=== PATIENT | male | born 1940 | race Caucasian/White ===

== ENCOUNTER 2018-01-08 11:49 | Inpatient (IN) | payer OTHER ==
[~2018-01-08] VITALS: Ht 180.3 cm; Wt 75.8 kg
[2018-01-08] MEDS ORDERED: FUROSEMIDE 10 MG/ML 2ML VIAL ONE (12:23)
[2018-01-08] MEDS ORDERED: FUROSEMIDE 10 MG/ML 4ML VIAL ONE (12:23)
[2018-01-08 12:32] LABS: BASOPHILS % (AUTO) 0.9 % (0.0-5.0); LYMPHOCYTES % (AUTO) 12.4 % (21.0-51.0); MEAN CORPUSCULAR HEMOGLOBIN 29.4 pg (27.0-33.0); MEAN CORPUSCULAR VOLUME 86.6 fL (79-99); MONOCYTES % (AUTO) 5.7 % (3.0-13.0); PLATELET COUNT (AUTO) 269 K/uL (130-400); RED BLOOD CELL COUNT(AUTO) 4.04 MIL/uL (4.50-6.20); RED CELL DISTRIBUTION WIDTH 14.8 % (11.0-15.5); WHITE BLOOD COUNT (AUTO) 4.9 K/uL (4.8-10.8)
[2018-01-08 12:44] LABS: CREATININE 1.7 mg/dL (0.5-1.5); POTASSIUM 3.9 mmol/L (3.5-5.1)
[2018-01-08 12:49] LABS: ALBUMIN 3.3 g/dL (3.5-5.0); BILIRUBIN,TOTAL 0.6 mg/dL (0.2-1.0); TOTAL PROTEIN, SERUM 7.1 g/dL (6.0-8.3)
[2018-01-08 13:03] LABS: B-TYPE NATRIURETIC PEPTIDE 279 pg/mL (0-100)
[2018-01-08] MEDS ORDERED: IPRATROPIUM/ALBUTEROL SULFATE 3 ML SOLUTION IH ONE (14:25)
[2018-01-08] MEDS ORDERED: GUAIFENESIN-DM 200/20 MG 10 ML PO PRN (15:00)
[2018-01-08] MEDS ORDERED: MORPHINE SULFATE 2 MG/ML 1ML SYG IV PRN (15:00)
[2018-01-08] MEDS ORDERED: ONDANSETRON HCL 4 MG/2 ML VIAL IV PRN (15:00)
[2018-01-08] MEDS ORDERED: ACETAMINOPHEN 325 MG TAB PO PRN (15:00)
[2018-01-08] MEDS ORDERED: METHYLPREDNISOLONE SOD SUCC 125MG/2ML VIAL ONE (15:01)
[2018-01-08] MEDS ORDERED: LIDOCAINE HCL-MPF 1% 2ML VIAL IVP PRN ×2 (15:30)
[2018-01-08] MEDS ORDERED: POTASSIUM CHLORIDE 10% ELIXIR 20 MEQ/15 ML UDCUP PO PRN ×2 (15:30)
[2018-01-08] MEDS: FUROSEMIDE 10 MG/ML 2ML VIAL IV SCH (15:30)
[2018-01-08] MEDS ORDERED: POTASSIUM CHLORIDE 20 MEQ ERTAB PO PRN ×2 (15:30)
[2018-01-08] MEDS ORDERED: GLUCAGON 1MG KIT 1 MG ML IM PRN (15:30)
[2018-01-08] MEDS ORDERED: POTASSIUM CHLORIDE 10MEQ/100ML 100 ML IV PRN (15:30)
[2018-01-08] MEDS ORDERED: POTASSIUM CHLORIDE 20MEQ/100ML 100 ML IV PRN (15:30)
[2018-01-08] MEDS ORDERED: DEXTROSE 50%-WATER 50 ML DISP.SYRIN IV PRN (15:30)
[2018-01-08] MEDS: AZITHROMYCIN 500MG+NS 250ML 250 ML IV SCH (18:00)
[2018-01-08] MEDS ORDERED: AZITHROMYCIN 500MG+NS 250ML 250 ML IV ONE (18:30)
[2018-01-08] MEDS: IPRATROPIUM/ALBUTEROL SULFATE 3 ML SOLUTION IH SCH ×2 (18:46→21:41)
[2018-01-08] MEDS: INSULIN HUMULIN R 100 UNIT/ML 3ML SQ SCH (21:00)
[2018-01-08] MEDS ORDERED: FAMOTIDINE 20MG TAB 20 MG TAB ONE (21:31)
[2018-01-08] MEDS ORDERED: INSULIN HUMULIN R 100 UNIT/ML 3ML ONE (21:43)
[2018-01-08 22:10] VITALS: BP 102/76
[2018-01-08] MEDS: LEVOFLOXACIN 250 MG/D5W 50ML 50 ML IV SCH (23:24)
[2018-01-08] MEDS: METHYLPREDNISOLONE SOD SUCC 40MG/ML 1ML IVP SCH (23:46)
[2018-01-09] VITALS (7 sets, daily range): BP systolic 96–130; BP diastolic 53–70
[2018-01-09] MEDS: IPRATROPIUM/ALBUTEROL SULFATE 3 ML SOLUTION IH SCH ×5 (01:02→23:15)
[2018-01-09] MEDS: FUROSEMIDE 10 MG/ML 2ML VIAL IV SCH ×2 (03:42→15:45)
[2018-01-09 04:25] LABS: APPEARANCE,URINE Clear (CLEAR); BILIRUBIN,URINE Negative (NEGATIVE); COLOR,URINE Yellow (YELLOW); GLUCOSE, URINE (UA) TRACE mg/dL (NEGATIVE); KETONES,URINE Trace mg/dL (NEGATIVE); LEUKOCYTE ESTERASE ,URINE Trace (NEGATIVE); NITRATE,URINE Negative (NEGATIVE); OCCULT BLOOD,URINE Small (NEGATIVE); PROTEIN,URINE Negative (NEGATIVE); UROBILINOGEN,URINE 0.2 mg/dL (0.2-1.0)
[2018-01-09 04:36] LABS: BACTERIA,URINE Rare /HPF (None Seen); SQUAMOUS EPITHELIAL CELL,UR Moderate /HPF (0-2); WBC,URINE 0-1 /HPF (0-1)
[2018-01-09] MEDS: INSULIN HUMULIN R 100 UNIT/ML 3ML SQ SCH ×4 (06:42→21:58)
[2018-01-09] MEDS: METHYLPREDNISOLONE SOD SUCC 40MG/ML 1ML IVP SCH ×2 (06:42→15:45)
[2018-01-09] MEDS: ENOXAPARIN SODIUM 40 MG/0.4 ML SYRINGE SQ SCH (10:42)
[2018-01-09] MEDS: FAMOTIDINE 20MG TAB 20 MG TAB PO SCH (10:42)
[2018-01-09] MEDS: AZITHROMYCIN 500MG+NS 250ML 250 ML IV SCH (17:43)
[2018-01-09] MEDS: LEVOFLOXACIN 250 MG/D5W 50ML 50 ML IV SCH (20:30)
[2018-01-09] MEDS: TAMSULOSIN HCL 0.4 MG CAP.ER.24H PO SCH (20:30)
[2018-01-10 03:00] VITALS: BP 92/48
[2018-01-10] MEDS: FUROSEMIDE 10 MG/ML 2ML VIAL IV SCH ×2 (03:29→15:44)
[2018-01-10] MEDS: METHYLPREDNISOLONE SOD SUCC 40MG/ML 1ML IVP SCH ×4 (03:29→22:50)
[2018-01-10 05:34] LABS: BASOPHILS % (AUTO) 0.2 % (0.0-5.0); LYMPHOCYTES % (AUTO) 3.4 % (21.0-51.0); MEAN CORPUSCULAR HEMOGLOBIN 29.7 pg (27.0-33.0); MEAN CORPUSCULAR HGB CONC 34.3 g/dL (32.0-36.0); MEAN CORPUSCULAR VOLUME 86.5 fL (79-99); MONOCYTES % (AUTO) 2.9 % (3.0-13.0); NEUTROPHILS % (AUTO) 93.5 % (40.0-77.0); PLATELET COUNT (AUTO) 231 K/uL (130-400); RED BLOOD CELL COUNT(AUTO) 3.47 MIL/uL (4.50-6.20); RED CELL DISTRIBUTION WIDTH 15.3 % (11.0-15.5); WHITE BLOOD COUNT (AUTO) 7.7 K/uL (4.8-10.8)
[2018-01-10 05:47] LABS: POTASSIUM 3.7 mmol/L (3.5-5.1)
[2018-01-10] MEDS: IPRATROPIUM/ALBUTEROL SULFATE 3 ML SOLUTION IH SCH ×4 (06:30→23:29)
[2018-01-10 07:30] VITALS: BP 98/55
[2018-01-10] MEDS: INSULIN HUMULIN R 100 UNIT/ML 3ML SQ SCH ×4 (07:30→23:01)
[2018-01-10] MEDS: FAMOTIDINE 20MG TAB 20 MG TAB PO SCH (09:24)
[2018-01-10] MEDS: ENOXAPARIN SODIUM 40 MG/0.4 ML SYRINGE SQ SCH (09:25)
[2018-01-10 11:00] VITALS: BP 103/55
[2018-01-10 16:00] VITALS: BP 109/59
[2018-01-10] MEDS: AZITHROMYCIN 500MG+NS 250ML 250 ML IV SCH (17:05)
[2018-01-10] MEDS ORDERED: INSULIN HUMULIN R 100 UNIT/ML 3ML SQ SCH (18:20)
[2018-01-10] MEDS ORDERED: GABA300S PO (18:50)
[2018-01-10] MEDS ORDERED: AEC81 PO (18:50)
[2018-01-10] MEDS ORDERED: ACET1TAB25 PO (18:50)
[2018-01-10] MEDS ORDERED: INSLAN SQ (18:50)
[2018-01-10] MEDS ORDERED: AMLO10TA6 PO (18:50)
[2018-01-10] MEDS ORDERED: TAMS0.4C32 PO (18:50)
[2018-01-10] MEDS ORDERED: IPRA3AMP24 IH (18:50)
[2018-01-10 19:20] VITALS: BP 94/56
[2018-01-10] MEDS: TAMSULOSIN HCL 0.4 MG CAP.ER.24H PO SCH (21:00)
[2018-01-10] MEDS: LEVOFLOXACIN 250 MG/D5W 50ML 50 ML IV SCH (22:52)
[2018-01-11 00:22] VITALS: BP 122/62
[2018-01-11 04:20] VITALS: BP 101/48
[2018-01-11] MEDS: FUROSEMIDE 10 MG/ML 2ML VIAL IV SCH ×2 (04:29→17:28)
[2018-01-11 05:50] LABS: BASOPHILS % (AUTO) 0.2 % (0.0-5.0); HEMATOCRIT 30.2 % (42-54); LYMPHOCYTES % (AUTO) 3.1 % (21.0-51.0); MEAN CORPUSCULAR HGB CONC 34.6 g/dL (32.0-36.0); MEAN CORPUSCULAR VOLUME 86.7 fL (79-99); MONOCYTES % (AUTO) 2.2 % (3.0-13.0); NEUTROPHILS % (AUTO) 94.5 % (40.0-77.0); PLATELET COUNT (AUTO) 230 K/uL (130-400); RED BLOOD CELL COUNT(AUTO) 3.48 MIL/uL (4.50-6.20); RED CELL DISTRIBUTION WIDTH 15.4 % (11.0-15.5); WHITE BLOOD COUNT (AUTO) 6.2 K/uL (4.8-10.8)
[2018-01-11 06:08] LABS: CREATININE 2.5 mg/dL (0.5-1.5); POTASSIUM 4.2 mmol/L (3.5-5.1)
[2018-01-11] MEDS: IPRATROPIUM/ALBUTEROL SULFATE 3 ML SOLUTION IH SCH ×4 (06:28→23:45)
[2018-01-11] MEDS: METHYLPREDNISOLONE SOD SUCC 40MG/ML 1ML IVP SCH (06:53)
[2018-01-11] MEDS: INSULIN HUMULIN R 100 UNIT/ML 3ML SQ SCH ×4 (06:55→21:10)
[2018-01-11 07:30] VITALS: BP 103/58
[2018-01-11] MEDS: FAMOTIDINE 20MG TAB 20 MG TAB PO SCH (08:34)
[2018-01-11] MEDS: ENOXAPARIN SODIUM 40 MG/0.4 ML SYRINGE SQ SCH (08:35)
[2018-01-11 11:00] VITALS: BP 115/58
[2018-01-11] MEDS ORDERED: INSULIN HUMULIN R 100 UNIT/ML 3ML SQ SCH (11:52)
[2018-01-11 16:00] VITALS: BP 102/57
[2018-01-11 19:30] VITALS: BP 122/67
[2018-01-11] MEDS: AZITHROMYCIN 500MG+NS 250ML 250 ML IV SCH (19:51)
[2018-01-11] MEDS: LEVOFLOXACIN 250 MG/D5W 50ML 50 ML IV SCH (21:09)
[2018-01-11] MEDS: PREDNISONE 20 MG TABLET PO SCH (21:09)
[2018-01-11] MEDS: TAMSULOSIN HCL 0.4 MG CAP.ER.24H PO SCH (21:09)
[2018-01-11] MEDS: ENOXAPARIN SODIUM 80 MG/0.8 ML SQ SCH (22:15)
[2018-01-11] MEDS ORDERED: ENOXAPARIN SODIUM 40 MG/0.4 ML SYRINGE SQ ONE (23:45)
[2018-01-12 00:38] VITALS: BP 120/54
[2018-01-12 04:10] VITALS: BP 105/58
[2018-01-12 04:54] LABS: HEMATOCRIT 29.8 % (42-54); MEAN CORPUSCULAR HEMOGLOBIN 29.9 pg (27.0-33.0); MEAN CORPUSCULAR HGB CONC 34.5 g/dL (32.0-36.0); MEAN CORPUSCULAR VOLUME 86.6 fL (79-99); PLATELET COUNT (AUTO) 231 K/uL (130-400); RED BLOOD CELL COUNT(AUTO) 3.44 MIL/uL (4.50-6.20); RED CELL DISTRIBUTION WIDTH 15.3 % (11.0-15.5); WHITE BLOOD COUNT (AUTO) 6.1 K/uL (4.8-10.8)
[2018-01-12 05:09] LABS: INR 1.04 (0.85-1.15); PARTIAL THROMBOPLASTIN TIME 29.4 SEC (26.3-35.5); PROTHROMBIN TIME 10.9 SEC (9.6-11.6)
[2018-01-12 05:14] LABS: CREATININE 2.1 mg/dL (0.5-1.5); POTASSIUM 3.9 mmol/L (3.5-5.1)
[2018-01-12] MEDS: IPRATROPIUM/ALBUTEROL SULFATE 3 ML SOLUTION IH SCH ×4 (06:37→23:13)
[2018-01-12] MEDS: INSULIN HUMULIN R 100 UNIT/ML 3ML SQ SCH ×4 (07:30→21:00)
[2018-01-12 08:18] VITALS: BP 105/57
[2018-01-12] MEDS: FAMOTIDINE 20MG TAB 20 MG TAB PO SCH (08:46)
[2018-01-12] MEDS: PREDNISONE 20 MG TABLET PO SCH ×2 (08:46→20:37)
[2018-01-12] MEDS: ENOXAPARIN SODIUM 80 MG/0.8 ML SQ SCH (08:47)
[2018-01-12 11:21] VITALS: BP 114/65
[2018-01-12] MEDS ORDERED: SODIUM CHLORIDE 0.9% 500ML 500 ML IV SCH (12:00)
[2018-01-12 16:24] VITALS: BP 123/74
[2018-01-12] MEDS: LEVOFLOXACIN 250 MG/D5W 50ML 50 ML IV SCH (19:26)
[2018-01-12 20:00] VITALS: BP 116/61
[2018-01-12] MEDS: TAMSULOSIN HCL 0.4 MG CAP.ER.24H PO SCH (20:37)
[2018-01-12] MEDS ORDERED: ALBU1.252 IH (22:50)
[2018-01-12] MEDS ORDERED: SALMH IH (22:50)
[2018-01-13] VITALS: BP 112/64
[2018-01-13 03:22] VITALS: BP 116/66
[2018-01-13 05:13] LABS: HEMATOCRIT 31.1 % (42-54); MEAN CORPUSCULAR HEMOGLOBIN 29.4 pg (27.0-33.0); MEAN CORPUSCULAR HGB CONC 33.8 g/dL (32.0-36.0); MEAN CORPUSCULAR VOLUME 86.8 fL (79-99); PLATELET COUNT (AUTO) 230 K/uL (130-400); RED BLOOD CELL COUNT(AUTO) 3.58 MIL/uL (4.50-6.20); WHITE BLOOD COUNT (AUTO) 5.4 K/uL (4.8-10.8)
[2018-01-13 05:27] LABS: CREATININE 1.8 mg/dL (0.5-1.5); POTASSIUM 3.9 mmol/L (3.5-5.1)
[2018-01-13] MEDS: IPRATROPIUM/ALBUTEROL SULFATE 3 ML SOLUTION IH SCH ×2 (06:36→10:59)
[2018-01-13] MEDS: INSULIN HUMULIN R 100 UNIT/ML 3ML SQ SCH ×2 (07:20→12:29)
[2018-01-13 08:00] VITALS: BP 113/64
[2018-01-13] MEDS: FAMOTIDINE 20MG TAB 20 MG TAB PO SCH (08:58)
[2018-01-13] MEDS ORDERED: APIXABAN 5 MG TABLET PO SCH (09:00)
[2018-01-13] MEDS ORDERED: PREDNISONE 20 MG TABLET PO SCH (09:00)
[2018-01-13] MEDS ORDERED: IPRAHFA IH (09:22)
== END 2018-01-13 15:10 | DRG 175 ==
LOC: EDH 11:49 → OBSVTOIN 14:47 → EDHIP 14:47 → 3CH 21:45
PROVIDERS: ADMIT Hospitalist; ATTEND Hospitalist
DX: I26.99 Other pulmonary embolism without acute cor pulmonale (principal); J18.9 Pneumonia, unspecified organism; N17.0 Acute kidney failure with tubular necrosis; J96.01 Acute respiratory failure with hypoxia; I50.31 Acute diastolic (congestive) heart failure; I13.0 Hypertensive heart and chronic kidney disease with heart failure and stage 1 through stage 4 chronic kidney disease, or unspecified chronic kidney disease; J44.0 Chronic obstructive pulmonary disease with (acute) lower respiratory infection; N39.0 Urinary tract infection, site not specified; N13.8 Other obstructive and reflux uropathy; J44.1 Chronic obstructive pulmonary disease with (acute) exacerbation; E11.22 Type 2 diabetes mellitus with diabetic chronic kidney disease; E11.51 Type 2 diabetes mellitus with diabetic peripheral angiopathy without gangrene; E78.5 Hyperlipidemia, unspecified; F17.200 Nicotine dependence, unspecified, uncomplicated; I05.0 Rheumatic mitral stenosis; I25.10 Atherosclerotic heart disease of native coronary artery without angina pectoris; J84.10 Pulmonary fibrosis, unspecified; N18.9 Chronic kidney disease, unspecified; N40.0 Benign prostatic hyperplasia without lower urinary tract symptoms; Z60.2 Problems related to living alone; R54 Age-related physical debility; I65.23 Occlusion and stenosis of bilateral carotid arteries; Z79.01 Long term (current) use of anticoagulants; Z83.3 Family history of diabetes mellitus; Z82.49 Family history of ischemic heart disease and other diseases of the circulatory system
CPT/HCPCS: 36415; 71045; 71046; 71250; 78580; 80048; 80053; 81001; 82948; 83880; 84484; 85025; 85027; 85610; 85730; 93005; 93306; 93880; 93970; 94640; 94664; 94760; 97039; 99291; A4344; A4606; A9540; J0456; J1650; J1815; J1940; J1956; J2405; J2920; J2930; J7040